=== PATIENT | female | born 1945 | race Caucasian/White ===

== ENCOUNTER 2017-10-25 07:08 | Emergency (ER) | payer OTHER ==
[~2017-10-25] VITALS: Ht 152.4 cm; Wt 81.6 kg
[~2017-10-25 07:08] MED LIST: ASPIR 8181 M1 PO; AUGMENTIN875 MG PO; CALCIO DEL MAR500 MG PO; FISH OIL SOFTG1 EACH PO; MUCINEX DM ER1 EAC1 PO; NAPROSYN500 MG PO; NASONEX17 GM BOTH NARES; PREDNISONE20 MG PO; TYLENOL ARTHRI650 M2 PO; VENTOLIN HFA18 GM IH; VITAMIN D-32000 UNIT PO
[2017-10-25 09:11] VITALS: BP 134/61
== END 2017-10-25 09:13 | disposition home or self-care (01) ==
LOC: EME 07:08
PROC: 3E0234Z Introduction of Serum, Toxoid and Vaccine into Muscle, Percutaneous Approach (ICD-10-PCS; principal; 2017-10-25)
DX: S01.01XA Laceration without foreign body of scalp, initial encounter (principal); W20.8XXA Other cause of strike by thrown, projected or falling object, initial encounter; Z23 Encounter for immunization; J45.909 Unspecified asthma, uncomplicated; E78.5 Hyperlipidemia, unspecified; K21.9 Gastro-esophageal reflux disease without esophagitis; Z88.6 Allergy status to analgesic agent; Z87.891 Personal history of nicotine dependence
CPT/HCPCS: 70450; 99281; 99284